=== PATIENT | female | born 2005 | race Caucasian/White ===

== ENCOUNTER 2025-10-28 21:55 | Emergency (ER) | payer BC, SELFPAY ==
--- OUTSIDE RECORDS SUMMARY | 2025-06-22 10:00 | XMS_ITS ---
Author Organization [facility] Address [address] [facility] [address] [place] [address] Phone [phone] Care Team Providers Care Ruby On Rails Engineer Name Role Phone Person Dakota STEPHENS Unavailable [phone] REASON FOR VISIT colon screening Medications Medication SIG (Take, Route, Frequency, Duration) Notes Start Date End Date Diagnosis (ICD Code) Status Sertraline HCl 50 MG Tablet 1 tablet Orally Once a day Active Social History Sex Observation Social History Observation Description Sex Observation Female Gender Identity Social History Observation Description Gender Identity Female Encounters Date Time Type Facility Location Provider Diagnosis 06/22/2025 10:00 AM Office Visit [facility] Op [address] [place], [place] [id number] Dakota Person Plan Of Treatment No Information Medical (General) History Medical History History ICD Code Patient Selected:: Irritable Bowel Syndrome / Sindrome del Intestino Irritable,Anxiety/Depression - Ansiedad/Depresion Others: Na Vaccine: Hepatitis A,Hepatitis B Progress Notes * Dalia GARCIAOB: [birth year] (20 yo F)Acc No.[id number]:06/22/2025 Procedure Note Patient: Suyapa Garcia Provider: Dakota Villar MD :2005 Age:20 Y Sex:Female Date:06/22/2025 Address:[address] [place], [place] [id number] Subjective: * Chief Complaints: * Colon screening * Medications: TakingSertraline HCl 50 MG Tablet 1 tablet Orally Once a day Sertraline HCl 50 MG Tablet 1 tablet Orally Once a day [id number] Sertraline HCl 50 MG Tablet 1 tablet Orally Once a day Objective: Past Vitals:* 06/10/2025 Ht: 62 in, Wt: 120 lbs, BMI: 21.95Index Billing Information: * Procedure Codes: * Electronic signature of Dakota Villar MD on 10/28/2025 at 10:19 PM EST Sign off status: Pending * Provider: Dakota Villar MD Date: 06/22/2025 Generated for Rosemary rinaldi/Hilario/Amayaitting on: 10/28/2025 10:19 PM EST
--- OUTSIDE RECORDS SUMMARY | 2025-07-29 09:30 | XMS_ITS ---
Author Organization [facility] Address [address] [facility] [address] [place] [address] Phone [phone] Care Team Providers Care Ruby Rails Developer Name Role Phone Person Dakota STEPHENS Unavailable [phone] REASON FOR VISIT New Patient - Digestive Problem Social History Sex Observation Social History Observation Description Sex Observation Female Gender Identity Social History Observation Description Gender Identity Female Encounters Date Time Type Facility Location Provider Diagnosis 07/29/2025 09:30 AM Office Visit [facility] [address] [facility] [place] [place], [place] [id number] Dakota Villar Plan Of Treatment No Information Medical (General) History Medical History History ICD Code Patient Selected:: Irritable Bowel Syndrome / Sindrome del Intestino Irritable,Anxiety/Depression - Ansiedad/Depresion Others: Na Vaccine: Hepatitis A,Hepatitis B Progress Notes * JOSENicolle HEINIdaniaOB: [birth year] (20 yo F)Acc No.[id number]:07/29/2025 History & Physical Patient: Suyapa Garcia Provider: Dakota Villar MD :2005 Age:20 Y Sex:Female Date:07/29/2025 Address:[address] [place], [place] [address]-[address] Subjective: * Chief Complaints: * New Patient - Digestive Problem Objective: Past Vitals:* 06/10/2025 Ht: 62 in, Wt: 120 lbs, BMI: 21.95Index * Electronic signature of Dakota Villar MD on 10/28/2025 at 10:18 PM EST Sign off status: Pending * Provider: Dakota Villar MD Date: 07/29/2025 Generated for Rosemary rinaldi/Hilario/Amayaitting on: 10/28/2025 10:18 PM EST
[2025-10-28 21:58] VITALS: BP 133/81; PULSE 88; RESP 16; TEMP 36.6; O2SAT 98; BMI 22.5
[2025-10-28 22:17] LABS: MANUAL DIFF FLAG NO
--- OUTSIDE RECORDS SUMMARY | 2025-10-28 22:19 | XMS_ITS | Clinical Summary ---
Author Organization [facility] Address [address] [place] [address] Care Team Providers Care Computational Mathematician Name Role Phone Deidre Marquez MD Primary Care Provider [phone] Allergies No known active allergies Medications methylPREDNISol one (MEDROL DOSEPACK) 4 mg tabletIndicatio ns:Right foot pain follow package directions 1 each 2 Active sertraline (ZOLOFT) 50 MG tablet Take 1 tablet by mouth in the morning. Active Active Problems No known active problems Immunizations Immunization Administration Dates Next Due HPV 9 (UBL=051) 07/11/2019 Family History Medical History Relation Name Comments Hypertension Father Relation Name Status Comments Father Alive Mother Alive Social History Tobacco Use Types Packs/Day Years Used Date Smoking Tobacco: Never Smokeless Tobacco: Never Alcohol Use Standard Drinks/Week Comments No 0 (1 standard drink = 0.6 oz pur e alcohol) Humiliation, Afraid, Rape, and Kick questionnair e Answer Date Recorded Within the last year, have y ou been afraid of your partner or ex-partner? No 06/22/2025 Within the last year, have y ou been humiliated or emotionally abused in other ways by your partner or ex-partner? No Within the last year, have y ou been kicked, hit, slapped, or otherwise physically hurt by your partner or ex-partner? No 06/22/2025 Within the last year, have y ou been raped or forced to have any kind of sexual activity by your partner or ex-partner? No 06/22/2025 PHQ-2 Answer Date Recorded PHQ-2 Score 0 08/31/2019 Comments No Sex and Gender Information Value Date Recorded Sex Assigned at Not on file Legal Sex Female 8:25 PM EST Gender Identity Not on file Sexual Orientation Not on file Last Filed Vital Signs Vital Sign Reading Time Taken Comments Blood Pressure 104/70 06/22/2025 10:36 AM EDT Pulse 64 06/22/2025 10:38 AM EDT Temperature 36.5 C (97.7 F) 06/22/2025 8:16 AM EDT Respiratory Rate 23 06/22/2025 10:38 AM EDT Oxygen Saturation 83% 06/22/2025 10:38 AM EDT Inhaled Oxygen Concentration - - Weight 54.4 kg (120 lb) 06/22/2025 8:16 AM EDT Height 157.5 cm (5' 2 ) 06/22/2025 8:16 AM EDT Body Mass Index 21.95 06/22/2025 8:16 AM EDT Plan of Treatment Health Maintenance Due Date Last Done Comments Hepatitis C Screening 2005 Influenza Vaccine (#1) 2025 , 09/09/2020, 10/18/2019, Additional history exists COVID-19 Vaccine ( season) 2025 11/03/2021, 03/02/2021, 02/09/2021 TdaP/Td Vaccine (2 - Td or Tdap) 04/12/2027 04/12/2017 RSV Vaccines (1 - 1-dose 75+ series) 2080 Hepatitis B Vaccine Completed 01/08/2006, 2005, 2005 Hepatitis A Vaccine Completed 05/13/2008, HPV Vaccine Completed 07/11/2019, 04/12/2017 Meningococcal ACWY Vaccine Completed 07/20/2021, Pneumococcal Vaccine 19-49 years At Risk patient Aged Out No longer eligible based on patient's age to complete this topic Insurance [facility] [employer] MED[employer] Care Teams Computational Mathematician Relationship Specialty Start Date End Date Deidre Marquez MD [address] [facility] [address] [place] [address] PCP - General Pediatrics 07/11/19
--- OUTSIDE RECORDS SUMMARY | 2025-10-28 22:19 | XMS_ITS | Clinical Summary ---
Author Organization [facility] Address [address] [place] [address] Care Team Providers Care Hvac Sales Representative Name Role Phone Deidre Marquez MD Primary Care Provider [phone] Allergies No known active allergies Medications No known medications Active Problems No known active problems Social History Tobacco Use Types Packs/Day Years Used Date Smoking Tobacco: Never Assessed Comments Unknown Sex and Gender Information Value Date Recorded Sex Assigned at Not on file Legal Sex Female 2:45 PM EST Gender Identity Not on file Sexual Orientation Not on file Last Filed Vital Signs Vital Sign Reading Time Taken Comments Blood Pressure - - Pulse - - Temperature 36.7 C (98.1 F) 08/25/2019 2:12 PM EDT Respiratory Rate - - Oxygen Saturation - - Inhaled Oxygen Concentration - - Weight 44.4 kg (97 lb 12.8 oz) 08/25/2019 2:12 P M EDT Height - - Body Mass Index - - Plan of Treatment Health Maintenance Due Date Last Done Comments Meningococcal B Vaccine (2 of 2 - Bexsero SCDM 2-dose series) 01/17/2022 07/20/2021 COVID-19 Vaccine ( season) 2025 11/03/2021, 03/02/2021, 02/09/2021 Influenza Vaccine (#1) 2025 , 09/09/2020, 10/18/2019, Additional history exists DTaP/Tdap Vaccine (7 - Td or Tdap) 04/12/2027 04/12/2017, 01/25/2010, 10/22/2006, Additional history exists HIB Vaccine Completed 01/08/2006, 04/13, 2005 Hepatitis B Vaccine Completed 01/08/2006, 2005, 2005 Pneumococcal Vaccine Aged Out 01/08/2006, 2005, 2005, Additional history exists No longer eligible based on patient's age to complete this topic Hepatitis A Vaccine Completed 05/13/2008, 6 IPV Vaccine Completed 01/25/2010, 03/2005, 2005, Additional history exists MMR Vaccine Completed 01/25/2010, 01/08/2006 Varicella Vaccine Completed 01/25/2010, 01/08/2006 HPV Vaccine Completed 07/11/2019, 04/12/2017 MCV4 IMMUNIZATION Completed 07/20/2021, 04/12/2017 Rotavirus Aged Out No longer eligi ble based on patient's age to complete this topic Insurance [facility] MEDICAID [employer] Care Teams Hvac Sales Representative Relationship Specialty Start Date End Date Deidre Marquez MD [address] [facility] [address] [place] [address] PCP - General Pediatrics 07/23/19
--- OUTSIDE RECORDS SUMMARY | 2025-10-28 22:19 | XMS_ITS | Patient Health Record ---
Author Organization [facility] Address [address] [place] [address] Care Team Providers Care Rat Trapper Name Role Phone EzJoy Primary Care Provider Allergies No Known Allergies Reason For Referral No Information Medications Medication SIG (Take, Route, Frequency, Duration) Notes Start Date End Date Status Dicyclomine HCl 20 MG Tablet 1 tablet Orally Three times a day; Duration: 30 days 07/31/2023 Not-Taking/PRN Immunizations Vaccine Route Administration Date Status Comme nts Meningococcal B VFC IM Intramuscular 07/20/2021 Administer ed Meningococcal B VFC IM Intramuscular 04/24/2023 Administer ed Meningococcal VFC IM Intramuscular 07/20/2021 Administered Social History Tobacco Use: Social History Observation Description Date Details (start date - stop date) Never Smoker NA - NA Sex Assigned At : Social History Observation Description Sex Assigned At Female Social History Drugs/Alcohol: Social Info Question Answer Notes Drugs Have you used drugs other than those for medical reasons in the past 12 months? No Alcohol Screen Did you have a drink containing alcohol in the past year? No Points 0 Interpretation Negative Family Planning Social Info Question Answer Notes (FEMALE): Primary Method of Bi rth Control: Abstinence Tobacco Use: Social Info Question Answer Notes Tobacco use other than smoking: Are you an other tobacco user? No Smoking Are you a nonsmoker Additional Details Category Social Info Options Details Miscellaneous: Caffeine: none , Beth North 08/29/2023 03:52:05 PM > Drugs/Alcohol: Family Hx of [place] illness Denied , Beth North 08/29/2023 03:52:13 PM > [facility] Are you registered t o VOTE? YES Problems Problem Type SNOMED Code ICD Code Onset Dates Problem Status W/U Status Risk Notes Problem Anxiety (54086327) Anxiety (F41.9) Active confirmed Problem Menstrual disorder (587232896) Irregular menses (N92.6) Active confirmed Problem Dyslexia (98511860) Dyslexia (R48.0) Active confirmed Plan Of Treatment Pending Test Test Name Order Date Test, Urine 07/31/2023 Rapid Strep 12/15/2022 Insurance Providers Payer Name Payer Address Payer Phone Subscriber Number Group Number Insured Name Patient Relationship to Insured Coverage Start Date Coverage End Date [employer] [address] [address] [place], [place] [id number] Suyapa Dinero Self - patient is the insured Medical (General) History Medical History History ICD Code Dyslexia R48.0 Anxiety F41.9 High cholesterol
--- OUTSIDE RECORDS SUMMARY | 2025-10-28 22:19 | XMS_ITS | Patient Health Record ---
Author Organization [facility] Address [address] [facility] [address] [place] [address] Phone [phone] Care Team Providers Care Burnisher Name Role Phone Person , Dakota Unavailable [phone] Young [facility] Unavailable Allergies No Known Allergies Results Component Value Reference Range Notes Surgical Pathology Exam Order date: 06/22/2025 Reviewed date:06/23/2025 04:23:19 PM Source/Specimen Type: Tissue Interpretation: Performing Lab: Notes/Report: AP CASE REPORT Surgical Pathology Case: [id number] Authorizing Provider: Dakota Villar MD Collected: 06/22/2025 0926 Ordering Location: [facility] Received: 06/22/2025 1126 Endoscopy Pathologist: Sami Laguerre MD Specimens: A) - Esophagus, tissue esophagus r/o eoe B) - Small Intestine, Duodenum, tissue duodenum r/o celiac C) - Stomach, Body, tissue stomach rlo hpylori D) - Colon, random colon tissue for diahrrea AP FINAL DIAGNOSIS A. ESOPHAGUS, BIOPSY: SQUAMOUS MUCOSA WITH NO SPECIFIC PATHOLOGIC ABNORMALITY. B. DUODENUM, BIOPSY: DUODENAL MUCOSA WITH NO SPECIFIC PATHOLOGIC ABNORMALITY. PRESERVED VILLOUS ARCHITECTURE WITHOUT INCREASED INTRAEPITHELIAL LYMPHOCYTES. C. STOMACH, BODY, BIOPSY: OXYNTIC AND ANTRAL TYPE MUCOSA WITH MINIMAL CHRONIC GASTRITIS. D. COLON, RANDOM, BIOPSY: COLONIC MUCOSA WITH NO SPECIFIC PATHOLOGIC ABNORMALITY. at 1001 EDT AP MICROSCOPIC DESCRIPTION Microscopic examination is performed. AP GROSS DESCRIPTION This case is receiv ed in 4 parts: A. The specimen is received in formalin and labeled with the patient's name, date of , and esophagus. It consists of multiple [id number]-lmj-jhgoi, pliable soft tissue fragment aggregating to 0.8 x 0.4 x 0.2 cm, which are submitted entirely in cassette A1. B. The specimen is received in formalin and labeled with the patient's name, date of , and small intestine, duodenum. It consists of multiple muniz-pink, rubbery soft tissue fragments aggregating to 1.2 x 0.5 x 0.2 cm, which are submitted entirely in cassette B1. C. The specimen is received in formalin and labeled with the patient's name, date of , and stomach, body. It consists of 2 muniz-pink, rubbery soft tissue fragments, 0.5 cm in greatest dimension each, both of which are submitted entirely in cassette C1. D. The specimen is received in formalin and labeled with the patient's name, date of , and random colon. It consists of 2 muniz-pink, rubbery soft tissue fragments, 0.4 cm and 0.6 cm in greatest dimension respectively, both of which are submitted entirely in cassette D1. LIBBY WORRELL ([facility]) Reason For Referral Addressed Referral details can be found under 'Consultation Request Notes' section Medications Medication SIG (Take, Route, Frequency, Duration) Notes Start Date End Date Diagnosis (ICD Code) Status Sertraline HCl 50 MG Tablet 1 tablet Orally Once a day Active Famotidine 40 MG Tablet 1 tablet Orally Twice a day; Duration: 90 days 07/10/2025 Globus sensation (ICD_10 - R09.A2) Active Cetirizine HCl 10 MG Tablet 1 tablet Orally Once a day; Duration: 30 days 07/10/2025 Globus sensation (ICD_10 - R09.A2) Active Hyoscyamine Sulfate 0.125 MG Tablet Disintegrating 1 tablet on the tongue and allow to dissolve as needed for abdominal pain Orally every 4 hrs; Duration: 30 days 07/10/2025 Irritable bowel syndrome with diarrhea (ICD_10 - K58.0) Active Social History Tobacco Use: Social History Observation Description Date Details (start date - stop date) Never Smoker NA - NA Sex Observation Social History Observation Description Sex Observation Female Gender Identity Social History Observation Description Gender Identity Female Social History Drugs: Social Info Question Answer Notes Drugs: Current or past use of IV or Recreational Drugs: Never / Nunca Alcohol: Social Info Question Answer Notes Alcohol Current or past use of alcohol: Never / N unca Tobacco Use: Social Info Question Answer Notes Smoker / Non-smoker Current or past use of tobacco: Ne shaheed / Nunca Additional Details Category Social Info Options Details Vaping Current or past use of vaping: Never / Nunca Vital Signs Vital Sign Value Notes Appt Date Heart Rate 92 /min 06/10/2025 Temperature 98 degrees Fahrenheit 2024 Blood pressure diastolic 82 mm Hg Weight-kg 54.43 kg 06/10/2025 Height 62 in 06/10/2025 Blood pressure systolic 132 mm Hg 05/14 Weight 120 lbs 06/10/2025 BMI 21.95 kg/m2 06/10/2025 Procedures Procedure Date Ordered Date Performed Result Body Sit e Colonoscopy Diagnostic at [facility] ([id number]) 06/10/20252024 N/A EGD with Dilation at [facility] ([id number]) 06/10/2025 06/22/2025 N/A Encounters Date Time Type Facility Location Provider Diagnosis 06/22/20 10:00 AM Office Visit [facility] Op [address] [place], [place] [phone] Dakota Person 06/10/20 10:30 AM Office or other outpatient visit for the evaluation and management of a new patient, which requires these 3 rahman components: a comprehensive history; ([address]) [facility] [address] [facility] [address] [place], [place] [phone] Dakota Person Epigastric abdominal pain R10.13 ; Esophageal dysphagia R13.19 ; Lower abdominal pain R10.30 and Alternating constipation and diarrhea R19.8 07/10/20 08:00 AM Office or other outpatient visit for the evaluation and management of an established patient, which requires at least 2 of these 3 rahman components: a ([address]) [facility] [address] [place], [place] [phone] Silvia [place] Irritable bowel syndrome with diarrhea K58.0 ; Globus sensation R09.A2 and Epigastric pain R10.13 06/24/20 03:45 PM Telephone Encounter [facility] [address] [place], [place] [phone] Dakota Person 07/10/20 11:39 AM Telephone Encounter [facility] [address] [place], [place] [phone] Silvia Vidal 07/14/20 01:04 PM Telephone Encounter [facility] [address] [place], [place] [phone] Silvia Vidal Assessments Encounter Date Diagnosis (ICD Code) Assessment Notes Treatment Notes Section Notes 06/10/2025 Epigastric abdominal pain (ICD-10 - R10.13) Schedule EGD to evaluate symptoms. Schedule RUQ U/S as well. She is leaving for college in two weeks. 06/10/2025 Esophageal dysphagia (ICD-10 - R13.19) 07/10/2025 Irritable bowel syndrome with diarrhea (ICD-10 - K58.0) likely dx. egd/colon neg with neg random colon and neg sbbx. failed bentyl prn levsin xifaxan consider amt vs buspar if fails to improve 07/10/2025 Globus sensation (ICD-10 - R09.A2) egd with inactive gastritis on bx. esophageal bx wnl and no change with empiric dil trial of H2. if this fails, would benefit from UGI vs ent referral. is in [place] [employer] 06/10/2025 Lower abdominal pain (ICD-10 - R10.30) Schedule colonsocopy to evaluate. Rule out IBD. 07/10/2025 Epigastric pain (ICD-10 - R10.13) prn levsin. above. seems occasional. consider HIDA/US if no improvement? discussed reaching out to nursing consultant if she has allergy concerns provoking symptoms but no evidence of Eoe or celiac. 06/10/2025 Alternating constipation and diarrhea (ICD-10 - R19.8) Plan Of Treatment No Information Insurance Providers Payer Name Payer Address Payer Phone Subscriber Number Group Number Insured Name Patient Relationship to Insured Coverage Start Date Coverage End Date [facility] POS B059 [address] [place] [address] [id number] Suyapa Garcia Self - patient is the insured Medical (General) History Medical History History ICD Code Patient Selected:: Irritable Bowel Syndrome / Sindrome del Intestino Irritable,Anxiety/Depression - Ansiedad/Depresion Others: Na Vaccine: Hepatitis A,Hepatitis B
--- OUTSIDE RECORDS SUMMARY | 2025-10-28 22:19 | XMS_ITS | Clinical Summary ---
Author Organization [facility] Address [address] [place] [address] Care Team Providers Care Retail Store Manager Name Role Phone Unavailable Primary Care Provider Unavailabl e Social History Tobacco Use Types Packs/Day Years Used Date Smoking Tobacco: Never Assessed Comments Unknown Sex and Gender Information Value Date Recorded Sex Assigned at Not on file Legal Sex Female 2:59 PM EDT Gender Identity Not on file Sexual Orientation Not on file Plan of Treatment Health Maintenance Due Date Last Done Comments Gonorrhea/Chlamydia Screening 2005 Varicella Vaccines (1 of 2 - 13+ 2-dose series) 2018 HPV Vaccines (1 - 3-dose series) 2020 Meningococcal B Vaccine (1 o f 2 - Standard) 2021 DTaP,Tdap,and Td Vaccines (1 - Tdap) 2024 Hepatitis B Vaccines (1 of 3 - 19+ 3-dose series) 2024 Depression Screening 11/12/2024 COVID-19 Vaccine (1 - 2024-2 6 season) 2025 Influenza Vaccine (#1) 2025 RSV Immunization Adult Patie nts (1 - 1-dose 75+ series) 2080 HIB Vaccines Aged Out No longer eligi ble based on patient's age to complete this topic Hepatitis A Vaccines Aged Out No long er eligible based on patient's age to complete this topic IPV Vaccines Aged Out No longer eligi ble based on patient's age to complete this topic MMR Vaccines Aged Out No longer eligi ble based on patient's age to complete this topic Meningococcal ACWY Vaccine Aged Out N o longer eligible based on patient's age to complete this topic Pneumococcal Vaccine: Pediat rics (0 to 5 Years) and At-Risk Patients (6 to 49 Years) Aged Out No longer eligible b ased on patient's age to complete this topic RSV Immunization Patients Un ava 20 months Aged Out No longer eligible b ased on patient's age to complete this topic
[2025-10-28 22:26] LABS: Hematocrit 36.3 % (37.0-47.0); Hemoglobin 12.2 g/dl (12.0-16.0); Imm Gran Abs Auto 0.05 X10*3/uL (0.00-0.03); Imm Gran Pct Auto 0.6 % (0.0-0.4); Lymphocytes Absolute Auto 2.6 X10*3/uL (1.2-4.9); Mean Corpuscular HGB Conc 33.6 g/dl (31.0-35.0); Mean Corpuscular Hemoglobin 28.4 pg (27.0-33.0); Mean Corpuscular Volume 84.4 fL (80.0-98.0); NRBC Abs Auto 0.000 X10*3/uL (0.0-0.012); NRBC Pct Auto 0.0 /100WBC (0.0-0.2); Platelet Count 266 X10*3/uL (160-400); Red Blood Count 4.30 X10*6/uL (4.20-5.50); White Blood Count 8.9 X10*3/uL (4.8-10.8)
[2025-10-28 22:32] LABS: Alanine Aminotransferase 29 U/L (0-31); Albumin Level 4.8 g/dL (3.5-5.0); Alkaline Phosphatase 47 U/L (39-117); Anion Gap 12 (12-20); Aspartate Amino Transferase 34 U/L (5-31); Blood Urea Nitrogen 13 mg/dL (9-16); Calcium 9.5 mg/dL (8.4-10.2); Carbon Dioxide 23 mmol/L (22-29); Chloride 107 mmol/L (96-108); Creatinine Clr Calc Pharmacy 89.1; Estimated Glomerular Filt Rate > 60; Potassium 4.3 mmol/L (3.3-5.1); Sodium 138 mmol/L (135-145); Total Protein 7.4 g/dL (6.5-8.0)
--- NOTE | 2025-10-29 00:16 | ED.GENADULT ---
HPI - General Adult General Chief complaint: General Medical Stated complaint: blood in stool, dizzy Time Seen by Provider: 10/28/25 23:53 Source: patient, RN notes reviewed and old records reviewed Mode of arrival: ambulatory Limitations: no limitations History of Present Illness ED Provider: Tessy PEREIRA narrative: 20-year-old female with past medical history significant for gastritis presents for evaluation of bloody stool. Patient reports that she frequently has blood in her stool but over the last 5-7 days she has noticed increased amount of bright red blood in his stool. 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 She did not syncopized Related Data Previous Rx's ?Medication ?Instructions ?Recorded hydrocortisone acetate 25 mg 25 mg UT BID #12 ea 10/29/25 rectal suppository (Anusol-HC) Allergies Allergy/AdvReac Type Severity Reaction Status Date / Time No Known Allergies Allergy Verified 10/28/25 22:00 Review of Systems Constitutional: Constitutional: Denies body ache(s), Denies chills, Denies fever(s) and Denies headache(s) Eyes: Eyes: Denies blurry vision ENT: Denies vertigo, Denies dizziness and Denies headache(s) Cardiovascular: Cardiovascular: Denies chest pain and Denies dyspnea on exertion Respiratory: Respiratory: Denies cough and Denies dyspnea on exertion Gastrointestinal: Gastrointestinal: Denies abdominal pain, Denies melena, Reports hematochezia and Denies vomiting Musculoskeletal: Musculoskeletal: Denies back pain Integumentary/Breasts: Skin/Breast: Denies rash Neurologic: Denies vertigo, Denies dizziness and Denies headache(s) Psychiatric: Psychiatric: Denies anxiety PMFSH Social History Social History Advance Directives: No Advance Directives Information Provided: No Physical Exam ED Vital Signs: Vital Signs - 24 hr 10/28/25 21:58 10/29/25 00:24 Temperature 98 F 98 F Pulse Rate 88 88 Respiratory Rate 16 16 Blood Pressure 133/81 133/81 Pulse Oximetry 98 98 Oxygen Delivery Method Room Air Room Air BMI result Body Mass Index 22.5 Const General: healthy appearing, comfortable, no acute distress, alert and awake Nutritional Appearance: well nourished Orientation/consciousness: patient oriented x3 HENMT Head: Yes normocephalic and Yes atraumatic Eyes Eyelids: Yes eyelids normal Conjunctivae: conjunctivae normal Sclerae: sclerae normal Corneas: corneas normal Pupils: Equal, round and reactive pupils present EOM: EOMs intact bilaterally Neck Neck: Yes full ROM Resp Effort & Inspection: normal respiratory effort, able to speak in complete sentences and not labored GI Other: Patient declined rectal examination Inspection: No distended Palpation (GI): Soft to palpation, not firm, nontender, no guarding and not rigid Rectal Exam - Female: deferred Skin General skin exam: elasticity normal Neuro General: patient oriented x3 Cranial nerves: Yes Equal, round and reactive pupils present and Yes Bilaterally intact EOM present Cognition (Neuro): normal cognition Extrem Other: Moving all extremities well without any obvious deformities Medical Decision Making Medical Decision Making [facility] Narrative: 20-year-old female presents for evaluation of bright red blood per rectum. She reports this is somewhat chronic for her but has been worse over last 5 days. She reports that she had an episode of dizziness today that lasted for a few minutes but did not syncopized. She denies any abdominal pain, rectal pain. The patient's vital signs are within normal limits, she does not have any significant anemia. I did recommend rectal examination for visualization and guaiac testing and the patient declines. She will follow up with her outpatient providers. I did agree to prescribe a short course of Anusol suppositories for likely internal hemorrhoids. Return precautions were given. She has no abdominal pain to suggest diverticulitis or colitis Differential Diagnosis Differential Diagnoses: The differential diagnosis associated with the presentation includes Internal hemorrhoid External hemorrhoid Constipation Rectal bleeding Diverticulitis Lab Data [facility] Lab Attestation statement: I reviewed the patient's lab results. No leukocytosis or significant anemia. MCV within normal limits. Normal platelet count. No electrolyte abnormalities warranting dimension. 10/28/25 22:12 10/28/25 22:12 Labs: Lab Results 10/28/25 Range/Units 22:12 WBC 8.9 (4.8-10.8) X10*3/uL RBC 4.30 (4.20-5.50) X10*6/uL Hgb 12.2 (12.0-16.0) g/dl Hct 36.3 L (37.0-47.0) % MCV 84.4 (80.0-98.0) fL MCH 28.4 (27.0-33.0) pg MCHC 33.6 (31.0-35.0) g/dl RDW 13.6 (11.0-16.0) % Plt Count 266 (160-400) X10*3/uL MPV 9.8 (9.4-12.3) fL Immature Gran % (Auto) 0.6 H (0.0-0.4) % Neut % (Auto) 61.1 (45-73) % Lymph % (Auto) 29.7 (20-40) % [place] % (Auto) 6.2 (2-11) % Eos % (Auto) 1.7 (0-4) % Baso % (Auto) 0.7 (0-2) % Lymph # (Auto) 2.6 (1.2-4.9) X10*3/uL [place] # (Auto) 0.6 (0.1-1.2) X10*3/uL Eos # (Auto) 0.2 (0.0-0.4) X10*3/uL Baso # (Auto) 0.1 (0.0-0.2) X10*3/uL Abs Immat Gran (auto) 0.05 H (0.00-0.03) X10*3/uL Absolute Neuts (auto) 5.4 (2.0-8.3) x10*3/uL Absolute Nucleated RBC 0.000 (0.0-0.012) X10*3/uL Nucleated RBC % (auto) 0.0 (0.0-0.2) /100WBC Sodium 138 (135-145) mmol/L Potassium 4.3 (3.3-5.1) mmol/L Chloride 107 (96-108) mmol/L Carbon Dioxide 23 (22-29) mmol/L Anion Gap 12 (12-20) BUN 13 (9-16) mg/dL Creatinine 0.76 (0.5-1.4) mg/dL Estim Creat Clear Calc 89.1 Estimated GFR > 60 Random Glucose 93 (60-115) mg/dL Calcium 9.5 (8.4-10.2) mg/dL Total Bilirubin 0.1 (0.0-1.0) mg/dL AST 34 H (5-31) U/L ALT 29 (0-31) U/L Alkaline Phosphatase 47 (39-117) U/L Total Protein 7.4 (6.5-8.0) g/dL Albumin 4.8 (3.5-5.0) g/dL Discharge Plan Discharge Clinical Impression: Rectal bleeding Patient Disposition: Home, Self-Care Instructions: Rectal Bleeding (ED) Additional Instructions: Bright red rectal bleeding is most commonly caused by hemorrhoids. Use the Anusol suppository twice daily for 5 days Avoid straining with bowel movements pain You may benefit from a stool softener such as MiraLax Follow up with your GI doctor when able Return for new or worsening symptoms Prescriptions: New hydrocortisone acetate [Anusol-HC] 25 mg suppository 25 mg UT BID Qty: 12 0RF Interventions: ED Discharge Assessment Last Done: 10/29/25 00:24 Discharge Date/Time: 10/29/25 00:25 Print Language: Bel[place]ian
[2025-10-29 00:24] VITALS: BP 133/81; PULSE 88; RESP 16; TEMP 36.6; O2SAT 98
== END 2025-10-29 00:25 | disposition home or self-care (01) ==
PROVIDERS: Emergency Provider Emergency Medicine
DX: K92.1 Melena (principal); R42 Dizziness and giddiness
CPT/HCPCS: 36415; 80053; 85025; 99282; 99283